=== PATIENT | female | born 1970 | race Caucasian/White ===

== ENCOUNTER → 2024-07-24 06:23 | Day surgery (SDC) | payer BC, SELFPAY | LOC: GI 06:23 | PROVIDERS: ATTENDING PHYSICIAN Internal Medicine Gastroenterology | DX: Z12.11 Encounter for screening for malignant neoplasm of colon (principal); K64.0 First degree hemorrhoids; K57.30 Diverticulosis of large intestine without perforation or abscess without bleeding; D12.0 Benign neoplasm of cecum; K63.5 Polyp of colon | CPT/HCPCS: 45385; 45380; 88305 ==